=== PATIENT | male | born 1970 | race Caucasian/White ===

== ENCOUNTER 2017-07-28 17:09 | Inpatient (IN) | payer SELFPAY ==
[~2017-07-28] VITALS: Ht 177.8 cm; Wt 115.2 kg
[~2017-07-28 17:09] MED LIST: ACET325T16 PO; AMPI500C2 PO; GLYB5TAB3 PO; INSU100I17 SQ; INSU100I27 SQ; LISI-334 PO; METF10003 PO; METO25TA4 PO; Nicotine TD; OXYC-327 PO; PSYL1PAC7 PO
--- NOTE | 2017-07-28 17:38 | ED.ADGEN ---
Past History Past Medical History: Diabetes, Hypertension, Other Past Surgical History: No Surgical History, Angioplasty, Other Smoking: Cigarettes Alcohol Use: None Drug Use: None Adult General Chief Complaint Chief Complaint ".. I ve been noticing my finger tips .. particular in my Lt hand are turning blue.. and some times they hurt..." HPI HPI Patient is a 46 year old male who presents with above hx and complaints of PVDz. Pt. has capillary refill in excess of 3 seconds in both hands, > more delay in Lt.. Pt. has loss of hair over lower 1/2 of low legs and also capillary refill in excess of 3 seconds. Pt. has had previous cardiac stents, Rt. femoral stent, HTN and is diabetic. Pt. still smokes in excess of 1 pack cigarettes a day. Pt. advised he has been instructed many times to quit smoking, but states he can not do that. Pt. follows with Review of Systems Review of Systems Constitutional: Denies fever or chills [] Eyes: Denies change in visual acuity, redness, or eye pain [] HENT: Denies nasal congestion or sore throat [] Respiratory: Denies cough or shortness of breath [] Cardiovascular: No additional information not addressed in HPI [] GI: Denies abdominal pain, nausea, vomiting, bloody stools or diarrhea [] : Denies dysuria or hematuria [] Musculoskeletal: Denies back pain or joint pain []left leg pain when he walks for a 4 Integument: Denies rash or skin lesions []complains of intermittent cyanosis and pain in left hand Neurologic: Denies headache, focal weakness or sensory changes [] Endocrine: Denies polyuria or polydipsia [] All other systems were reviewed and found to be within normal limits, except as documented in this note. Family History Family History Noncontributory Current Medications Current Medications Current Medications Medications (Trade) Dose Ordered Sig/Preet Start Time Stop Time Status Last Admin Dose Admin Dabigatran (Pradaxa) 150 mg 1X ONCE 07/28/17 18:00 07/28/17 18:01 DC 07/28/17 18:14 150 MG Ondansetron HCl (Zofran) 4 mg PRN Q4HRS PRN 07/28/17 18:30 07/29/17 18:29 Allergies Allergies Allergies Coded Allergies Type Severity Reaction Last Updated Verified No Known Drug Allergies 11/16/16 No Physical Exam Physical Exam Constitutional: Moderately acute distress, non-toxic appearance. [] HENT: Normocephalic, atraumatic, bilateral external ears normal, oropharynx moist, no oral exudates, nose normal. [] Eyes: PERRLA, EOMI, conjunctiva normal, no discharge. [] Neck: Normal range of motion, no tenderness, supple, no stridor. [] Cardiovascular:Heart rate regular rhythm, no murmur [] Lungs & Thorax: Bilateral breath sounds equal apex scattered wheezes auscultation [] Abdomen: Bowel sounds normal, soft, no tenderness, no masses, no pulsatile masses. [] Skin: Warm, dry, no erythema, no rash. [] Back: No tenderness, no CVA tenderness. [] Extremities: No tenderness, no cyanosis, no clubbing, ROM intact, no edema. [] Capillary refill more than 3 seconds and fingers and toes. Has lost hair on bilateral lower shins. Having interment cyanosis of fingers on Lt. hand. Neurologic: Alert and oriented X 3, normal motor function, normal sensory function, no focal deficits noted. [] Psychologic: Affect anxious, judgement normal, mood normal. [] Current Patient Data Vital Signs Vital Signs Date Time Temp Pulse Resp B/P (MAP) Pulse Ox O2 Delivery O2 Flow Rate FiO2 07/28/17 18:15 99 20 132/67 (88) 95 Room Air 07/28/17 17:09 98.0 Lab Results Laboratory Tests Test 07/28/17 18:04 White Blood Count 12.9 x10^3/uL (4.0-11.0) H Red Blood Count 4.96 x10^6/uL (4.30-5.70) Hemoglobin 15.8 g/dL (13.0-17.5) Hematocrit 45.4 % (39.0-53.0) Mean Corpuscular Volume 92 fL (79-100) Mean Corpuscular Hemoglobin 32 pg (25-35) Mean Corpuscular Hemoglobin Concent 35 g/dL (31-37) Red Cell Distribution Width 14.1 % (11.5-14.5) Platelet Count 353 x10^3/uL (140-400) Neutrophils (%) (Auto) 65 % (31-73) Lymphocytes (%) (Auto) 20 % (24-48) L Monocytes (%) (Auto) 8 % (0-9) Eosinophils (%) (Auto) 6 % (0-3) H Basophils (%) (Auto) 1 % (0-3) Neutrophils # (Auto) 8.4 x10^3uL (1.8-7.7) H Lymphocytes # (Auto) 2.6 x10^3/uL (1.0-4.8) Monocytes # (Auto) 1.0 x10^3/uL (0.0-1.1) Eosinophils # (Auto) 0.7 x10^3/uL (0.0-0.7) Basophils # (Auto) 0.1 x10^3/uL (0.0-0.2) Prothrombin Time 9.8 SEC (9.4-11.4) Prothrombin Time INR 1.0 (0.9-1.1) PTT 35 SEC (23-33) H Sodium Level 140 mmol/L (136-145) Potassium Level 4.0 mmol/L (3.5-5.1) Chloride Level 101 mmol/L (98-107) Carbon Dioxide Level 26 mmol/L (21-32) Anion Gap 13 (6-14) Blood Urea Nitrogen 16 mg/dL (8-26) Creatinine 1.1 mg/dL (0.7-1.3) Estimated GFR (Cockcroft-Gault) 71.4 Glucose Level 138 mg/dL (70-99) H Calcium Level 9.6 mg/dL (8.5-10.1) Magnesium Level 2.4 mg/dL (1.8-2.4) Total Bilirubin 0.5 mg/dL (0.2-1.0) Direct Bilirubin 0.0 mg/dL (0.0-0.2) Aspartate Amino Transferase (AST) 27 U/L (15-37) Alanine Aminotransferase (ALT) 28 U/L (16-63) Alkaline Phosphatase 121 U/L (46-116) H [id number]-Type Natriuretic Peptide 68 pg/mL (0-124) Total Protein 8.2 g/dL (6.4-8.2) Albumin 4.2 g/dL (3.4-5.0) EKG EKG My interpretation EKG shows a sinus rhythm at 83 bpm. No finding to acute changes Radiology/Procedures Radiology/Procedures My interpretation of chest x-ray shows borderline cardiomegaly. Some findings of COPD. No large infiltrate.[] Ultrasound of lower limb shows segmental a proximal mid left superficial femoral artery. See Formal reports when available Course & Med Decision Making Course & Med Decision Making Pertinent Labs and Imaging studies reviewed. (See chart for details) Must stop smoking. Pt. to be admitted to Dr. Dodd. Continue daily ASA 81 mg and start Pradaxa 150 twice a day. Will complete US workup PVDz. US of Lt. arm shows no obvious obstruction veinous or arterial. Still awaiting electrolytes at 2100 hrs. Electrolytes still pending at time of admission [] Final Impression Final Impression 1. PVDz 2. HTN 3. Hx. HTN 4. Hx. CADz with Stent 5. Continue Tobacco Use[] 6. Leukocytosis Problems: Dragon Disclaimer Dragon Disclaimer This electronic medical record was generated, in whole or in part, using a voice recognition dictation system. JIMMIE HEAD MD July 28, 2017 17:38
[2017-07-28] MEDS ORDERED: DABI150C PO (17:58)
[2017-07-28] MEDS ORDERED: DABIGATRAN ETEXILATE 150 MG CAPSULE. PO ONE (18:00)
[2017-07-28] MEDS ORDERED: ONDANSETRON PF 4 MG/2 ML VIAL. IV PRN (18:30)
--- NOTE | 2017-07-28 18:35 | EKG ---
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
[2017-07-28 18:59] LABS: BASO # 0.1 x10^3/uL (0.0-0.2); BASO % 1 % (0-3); EOS # 0.7 x10^3/uL (0.0-0.7); EOS % 6 % (0-3); HEMATOCRIT 45.4 % (39.0-53.0); HEMOGLOBIN 15.8 g/dL (13.0-17.5); LYMPH # 2.6 x10^3/uL (1.0-4.8); LYMPH % 20 % (24-48); MEAN CORPUSCULAR HEMOGLOBIN 32 pg (25-35); MEAN CORPUSCULAR HGB CONC 35 g/dL (31-37); MEAN CORPUSCULAR VOLUME 92 fL (79-100); MONO % 8 % (0-9); NEUT # 8.4 x10^3uL (1.8-7.7); NEUT % 65 % (31-73); PLATELET COUNT 353 x10^3/uL (140-400); RED BLOOD COUNT 4.96 x10^6/uL (4.30-5.70); RED CELL DISTRIBUTION WIDTH 14.1 % (11.5-14.5); WHITE BLOOD COUNT 12.9 x10^3/uL (4.0-11.0)
[2017-07-28] MEDS ORDERED: KETOROLAC 30 MG/ML VIAL. IV ONE (20:00)
[2017-07-28] MEDS ORDERED: MORPHINE SULFATE 4 MG/ML DISP.SYRIN. IV ONE (20:30)
[2017-07-28] MEDS ORDERED: MORPHINE SULFATE 10 MG/ML SYRINGE. SQ ONE (20:30)
[2017-07-28] MEDS ORDERED: NITROGLYCERIN OINT 1 GM PACKET. TP ONE (21:00)
[2017-07-28 21:01] LABS: ALBUMIN 4.2 g/dL (3.4-5.0); TOTAL PROTEIN 8.2 g/dL (6.4-8.2)
[2017-07-28 21:03] LABS: MAGNESIUM 2.4 mg/dL (1.8-2.4); TOTAL BILIRUBIN 0.5 mg/dL (0.2-1.0)
--- NOTE | 2017-07-28 21:08 | RAD ---
Left lower extremity arterial doppler ultrasound History: Left toe cyanosis Comparison: None Findings: Multiple grayscale, color, and duplex spectral analysis sonographic images were acquired of the left lower extremity arteries. There is segmental occlusion of the proximal through the mid left superficial femoral artery, reconstitution of the distal left superficial femoral artery. There are monophasic waveforms beyond the segment of occlusion, triphasic waveforms of the left common femoral artery and profunda femoris artery. Velocities in centimeters per second are as follows: Common femoral artery 84 Profunda femoris 158 Distal superficial femoral artery 20 Popliteal 18 Proximal posterior tibial artery 30 Distal posterior tibial 38 Peroneal 34 Anterior tibial 28 Dorsalis pedis 21 Impression: 1. There is segmental occlusion of the proximal through mid left superficial femoral artery, reconstitution at the level of the distal superficial femoral artery. There are abnormal monophasic waveforms beyond the segment of occlusion. Electronically signed by: Booker Lorenzo MD (07/28/2017 9:05 PM) [facility]
--- NOTE | 2017-07-28 21:11 | RAD ---
Left upper extremity arterial ultrasound HISTORY: Painful cyanosis of the left first through third digits, finger sinuses COMPARISON: None FINDINGS: Multiple grayscale, color, duplex spectral analysis waveform images of the left upper extremity arteries are submitted. There is motion degradation. There are triphasic waveforms of the anterior left lower extremity arteries, no focal vessel occlusion or significant stenosis is demonstrated. Velocities in centimeters per second are as follows: Proximal subclavian 102 Distal subclavian 86 Axillary 66 Proximal brachial 87 Distal brachial 74 Proximal radial 65 Distal radial 75 Proximal ulnar 37 Distal ulnar 45 IMPRESSION: 1. No focal vessel occlusion or significant stenosis is demonstrated of the left upper extremity arteries. Electronically signed by: Booker Lorenzo MD (07/28/2017 9:07 PM) [facility]
--- NOTE | 2017-07-28 21:14 | RAD ---
Carotid doppler ultrasound History: LT FINGER TOE CYANOSIS, PAIN, peripheral vascular disease Multiple grayscale, color, and duplex spectral analysis waveform sonographic images were acquired of the carotid, subclavian, and vertebral arteries. Comparison: None Findings: RIGHT: PSV cm/sec EDV cm/sec Common carotid artery 74 24 Maximal internal carotid artery 82 42 External carotid artery 75 Vertebral artery 50 ICA/CCA ratio 1.1 LEFT: PSV cm/sec EDV cm/sec Common carotid artery 78 17 Maximum internal carotid artery 68 25 External carotid artery 60 Vertebral artery 37 ICA/CCA ratio 0.87 Velocities used to determine stenosis are known to correlate with NASCET angiographic criteria. There is antegrade flow in the bilateral vertebral arteries. No significant stenosis is demonstrated on grayscale or color images. Impression: 1. There is no evidence of a hemodynamically significant stenosis. Electronically signed by: Booker Lorenzo MD (07/28/2017 9:11 PM) [facility]
[2017-07-28 21:50] VITALS: BP 124/81
[2017-07-28 22:36] LABS: CALCIUM 9.6 mg/dL (8.5-10.1); CREATININE 1.1 mg/dL (0.7-1.3); GFR 71.4
[2017-07-28] MEDS: MORPHINE SULFATE 10 MG/ML SYRINGE. SQ PRN (23:44)
[2017-07-29 06:00] VITALS: BP 134/73
[2017-07-29] MEDS: MORPHINE SULFATE 10 MG/ML SYRINGE. SQ PRN (06:25)
[2017-07-29 06:33] LABS: BASO # 0.1 x10^3/uL (0.0-0.2); BASO % 1 % (0-3); EOS # 0.7 x10^3/uL (0.0-0.7); EOS % 7 % (0-3); HEMATOCRIT 43.6 % (39.0-53.0); LYMPH # 2.5 x10^3/uL (1.0-4.8); LYMPH % 23 % (24-48); MEAN CORPUSCULAR HEMOGLOBIN 32 pg (25-35); MEAN CORPUSCULAR HGB CONC 34 g/dL (31-37); MEAN CORPUSCULAR VOLUME 92 fL (79-100); MONO # 1.1 x10^3/uL (0.0-1.1); MONO % 10 % (0-9); NEUT # 6.4 x10^3uL (1.8-7.7); NEUT % 59 % (31-73); PLATELET COUNT 326 x10^3/uL (140-400); RED BLOOD COUNT 4.74 x10^6/uL (4.30-5.70); RED CELL DISTRIBUTION WIDTH 13.7 % (11.5-14.5); WHITE BLOOD COUNT 10.9 x10^3/uL (4.0-11.0)
[2017-07-29] MEDS ORDERED: metFORMIN 500 MG TABLET PO SCH (08:00)
[2017-07-29] MEDS ORDERED: ASPIRIN 81 MG TAB.CHEW PO SCH (09:00)
[2017-07-29] MEDS ORDERED: LISINOPRIL 20 MG TABLET PO SCH (09:00)
[2017-07-29] MEDS ORDERED: DABIGATRAN ETEXILATE 150 MG CAPSULE. PO SCH ×2 (09:00)
[2017-07-29] MEDS ORDERED: METOPROLOL TART IMMED RELEASE 25 MG TABLET PO SCH (09:00)
[2017-07-29] MEDS ORDERED: glyBURIDE 5 MG TABLET PO SCH (09:00)
[2017-07-29 09:39] LABS: CALCIUM 9.2 mg/dL (8.5-10.1)
[2017-07-29 09:40] LABS: CREATININE 1.2 mg/dL (0.7-1.3); GFR 64.6
--- NOTE | 2017-07-29 11:34 | DS ---
DATE OF DISCHARGE: 07/29/2017 HOSPITAL COURSE: The patient admitted with vascular insufficiency and having problems with primarily his left leg. His hand he says is much better. We have encouraged him to stop smoking. He is doing better there. White count came down. The imaging shows segmental occlusion in the mid left superficial femoral artery and reconstituting later. Apparently he has had vascular problems in the past. We will try to get him in to a vascular surgeon as soon as possible and keep him on the Pradaxa for now and make further evaluation on him as indicated. His LDL is slightly elevated at 127, glucose 138. IMPRESSION: Vascular insufficiency occlusion of the left femoral artery, type 2 diabetes, obesity, hypercholesterolemia. The patient will follow up accordingly. See EMRAD, diabetic diet, decreased activity. Make further evaluation on him as indicated. PETER SÁNCHEZ MD DR: ISSAC/andrei JOB#: [id number] / [id number]
== END 2017-07-29 10:00 | disposition home or self-care (01) | DRG 301 ==
LOC: ER 17:09 → 1 SOUTH 18:30
PROVIDERS: ADMIT Family Medicine; ATTEND Family Medicine
DX: I70.202 Unspecified atherosclerosis of native arteries of extremities, left leg (principal); E11.51 Type 2 diabetes mellitus with diabetic peripheral angiopathy without gangrene; E66.9 Obesity, unspecified; E78.00 Pure hypercholesterolemia, unspecified; F17.210 Nicotine dependence, cigarettes, uncomplicated; I25.10 Atherosclerotic heart disease of native coronary artery without angina pectoris; I10 Essential (primary) hypertension; Z95.5 Presence of coronary angioplasty implant and graft; Z95.820 Peripheral vascular angioplasty status with implants and grafts; Z79.84 Long term (current) use of oral hypoglycemic drugs; Z79.899 Other long term (current) drug therapy
CPT/HCPCS: 36415; 80048; 80061; 80076; 83735; 83880; 85025; 85610; 85730; 93005; 93880; 93926; 93931; 96372; 96374; 96375; 99406; G0238; J1885; J2270; 99285-25

== ENCOUNTER 2017-08-18 10:49 | Emergency (ER) | payer SELFPAY ==
[~2017-08-18] VITALS: Ht 177.8 cm; Wt 115.0 kg
[~2017-08-18 10:49] MED LIST changes: +DABI150C PO
[2017-08-18] MEDS ORDERED: IV NORMAL SALINE 1,000ML 1,000 ML IV SCH (11:16)
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
[2017-08-18 11:34] LABS: BASO # 0.1 x10^3/uL (0.0-0.2); BASO % 1 % (0-3); EOS # 0.2 x10^3/uL (0.0-0.7); EOS % 1 % (0-3); LYMPH # 2.2 x10^3/uL (1.0-4.8); LYMPH % 14 % (24-48); MEAN CORPUSCULAR HEMOGLOBIN 31 pg (25-35); MEAN CORPUSCULAR HGB CONC 34 g/dL (31-37); MEAN CORPUSCULAR VOLUME 90 fL (79-100); MONO # 0.8 x10^3/uL (0.0-1.1); MONO % 5 % (0-9); NEUT # 12.2 x10^3uL (1.8-7.7); NEUT % 79 % (31-73); PLATELET COUNT 365 x10^3/uL (140-400); RED BLOOD COUNT 4.55 x10^6/uL (4.30-5.70); RED CELL DISTRIBUTION WIDTH 13.6 % (11.5-14.5); WHITE BLOOD COUNT 15.5 x10^3/uL (4.0-11.0)
[2017-08-18] MEDS: HYDROmorphone PF 1 MG/ML DISP.SYRIN IV/SQ PRN ×2 (11:37→12:27)
[2017-08-18 11:39] LABS: CALCIUM 8.5 mg/dL (8.5-10.1); GFR 79.8; POTASSIUM 3.8 mmol/L (3.5-5.1)
[2017-08-18] MEDS ORDERED: PROCHLORPERAZINE 10 MG/2 ML VIAL. IV ONE (11:45)
[2017-08-18] MEDS ORDERED: CONTRAST GIVEN MC PRN (11:45)
[2017-08-18] MEDS ORDERED: IOHEXOL 300 MG/ML 75 ML VIAL. IV ONE (11:45)
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
[2017-08-18 12:33] VITALS: BP 162/94
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
[2017-08-18 13:04] LABS: BARBITURATES NEG (NEG); BENZODIAZEPINES NEG (NEG); CANNABINOIDS POS (NEG); COCAINE NEG (NEG); METHADONE NEG (NEG); OPIATES POS (NEG); PHENCYCLIDINE NEG (NEG)
[2017-08-18 13:05] LABS: AMPHETAMINE/METHAMPHETAMINE NEG (NEG)
[2017-08-18 13:07] LABS: BILIRUBIN,URINE NEG (NEG); CLARITY,URINE CLEAR; COLOR,URINE AMBER; GLUCOSE,URINE NEG (NEG); NITRITE,URINE NEG (NEG); UROBILINOGEN,URINE 2 mg/dL (0.2 mg/dL)
[2017-08-18 13:08] LABS: BACTERIA,URINE 0 /HPF (0-FEW); HYALINE CASTS, URINE OCC /HPF; SQUAMOUS EPITHELIAL CELL,UR FEW /LPF; WBC,URINE OCC /HPF (0-4)
[2017-08-18 14:08] LABS: % BANDS 3 % (0-9); % BASOS 1 % (0-3); % LYMPHS 13 % (24-48); % MONOS 2 % (0-10); % SEGS 79 % (35-66); PLATELET CLUMP PRESENT; PLT ESTIMATE INCREASED (ADEQUATE)
== END 2017-08-18 13:40 | disposition home or self-care (01) ==
LOC: ER 10:49
DX: M79.644 Pain in right finger(s) (principal); R10.84 Generalized abdominal pain; R07.89 Other chest pain; E11.9 Type 2 diabetes mellitus without complications; I10 Essential (primary) hypertension; F17.210 Nicotine dependence, cigarettes, uncomplicated; F12.10 Cannabis abuse, uncomplicated; Z79.02 Long term (current) use of antithrombotics/antiplatelets; Z79.82 Long term (current) use of aspirin; V43.52XA Car driver injured in collision with other type car in traffic accident, initial encounter; Y93.89 Activity, other specified; Y99.8 Other external cause status; Y92.89 Other specified places as the place of occurrence of the external cause
CPT/HCPCS: 36415; 70450; 71260; 72125; 74177; 80048; 80307; 81001; 83605; 85007; 85025; 85610; 85730; 86850; 86900; 86901; 96374; 96375; 96376; 99285; G0480; J0780; J1170; Q9967; G0479; J7030

== ENCOUNTER 2017-08-23 08:46 | Inpatient (IN) | payer SELFPAY ==
[~2017-08-23] VITALS: Ht 177.8 cm; Wt 112.5 kg
[2017-08-23 08:19] VITALS: BP 203/105
[2017-08-23] MEDS ORDERED: LORazepam 0.5 MG TABLET PO ONE (09:30)
[2017-08-23] MEDS ORDERED: HYDROmorphone PF 2 MG/ML VIAL IM ONE (09:30)
[2017-08-23] MEDS: IV NORMAL SALINE 1,000ML 1,000 ML IV SCH ×2 (10:36→19:52)
[2017-08-23] MEDS: PENTOXIFYLLINE ER 400 MG TABLET.ER. PO SCH ×2 (10:36→16:27)
[2017-08-23] MEDS: CLOPIDOGREL BISULFATE 75 MG TABLET PO SCH (10:36)
[2017-08-23] MEDS: metFORMIN 500 MG TABLET PO SCH ×2 (10:36→16:27)
[2017-08-23] MEDS: METOPROLOL TART IMMED RELEASE 25 MG TABLET PO SCH ×2 (10:37→20:13)
[2017-08-23] MEDS: glyBURIDE 5 MG TABLET PO SCH (10:37)
[2017-08-23] MEDS: LISINOPRIL 20 MG TABLET PO SCH (10:37)
[2017-08-23] MEDS: DABIGATRAN ETEXILATE 150 MG CAPSULE. PO SCH ×2 (10:38→20:13)
[2017-08-23 10:58] LABS: ALBUMIN 3.1 g/dL (3.4-5.0); ALBUMIN/GLOBULIN RATIO 0.7 (1.0-1.7); CALCIUM 8.8 mg/dL (8.5-10.1); GFR 79.8; POTASSIUM 4.1 mmol/L (3.5-5.1); TOTAL BILIRUBIN 0.3 mg/dL (0.2-1.0); TOTAL PROTEIN 7.6 g/dL (6.4-8.2)
[2017-08-23] MEDS: HYDROmorphone PF 2 MG/ML VIAL IV PRN ×6 (11:24→23:29)
[2017-08-23 11:39] VITALS: BP 180/120
[2017-08-23] MEDS ORDERED: VANCOMYCIN 2 GM in IV NORMAL SALINE 500ML 500 ML IV ONE (12:00)
[2017-08-23] MEDS: VANCOMYCIN PER PHARMACY MC PRN (13:38)
[2017-08-23 16:23] VITALS: BP 159/105
[2017-08-23 18:40] VITALS: BP 195/106
[2017-08-23] MEDS: DOCUSATE SODIUM 100 MG CAPSULE PO SCH (20:12)
[2017-08-23] MEDS: LACTOBACILLUS RHAMNOSUS GG 1 CAPSULE. PO SCH (20:13)
[2017-08-23] MEDS: LORazepam 0.5 MG TABLET PO PRN (20:13)
[2017-08-23] MEDS: VANCOMYCIN 1.5 GM in IV NORMAL SALINE 500ML 500 ML IV SCH (21:21)
[2017-08-23] MEDS: IPRATRPIUM/ALBUTEROL 0.5/2.5MG 3 ML NEBU. NEB SCH (21:31)
[2017-08-23 23:21] VITALS: BP 202/94
[2017-08-24] MEDS: HYDROcodone/APAP 10/325 1 TAB TABLET PO PRN ×2 (01:28→06:14)
[2017-08-24] MEDS: LIDOCAINE 5% TOPICAL OINTMENT 35GM TUBE. TP PRN (02:05)
[2017-08-24] MEDS: LORazepam 0.5 MG TABLET PO PRN ×3 (02:05→20:00)
[2017-08-24] MEDS: HYDROmorphone PF 2 MG/ML VIAL IV PRN ×4 (03:03→20:01)
[2017-08-24] MEDS: IV NORMAL SALINE 1,000ML 1,000 ML IV SCH ×2 (03:03→17:52)
[2017-08-24] MEDS: VANCOMYCIN 1.5 GM in IV NORMAL SALINE 500ML 500 ML IV SCH ×2 (04:29→17:51)
[2017-08-24] MEDS: IPRATRPIUM/ALBUTEROL 0.5/2.5MG 3 ML NEBU. NEB SCH ×4 (05:22→20:30)
[2017-08-24 07:00] VITALS: BP 158/96
[2017-08-24] MEDS: metFORMIN 500 MG TABLET PO SCH ×2 (08:48→17:51)
[2017-08-24] MEDS: PENTOXIFYLLINE ER 400 MG TABLET.ER. PO SCH ×2 (08:49→17:51)
[2017-08-24] MEDS: LACTOBACILLUS RHAMNOSUS GG 1 CAPSULE. PO SCH ×2 (08:49→20:15)
[2017-08-24] MEDS: glyBURIDE 5 MG TABLET PO SCH (08:49)
[2017-08-24] MEDS: METOPROLOL TART IMMED RELEASE 25 MG TABLET PO SCH ×2 (08:49→20:01)
[2017-08-24] MEDS: CLOPIDOGREL BISULFATE 75 MG TABLET PO SCH (08:49)
[2017-08-24] MEDS: LISINOPRIL 20 MG TABLET PO SCH (08:49)
[2017-08-24] MEDS: DABIGATRAN ETEXILATE 150 MG CAPSULE. PO SCH ×2 (08:50→20:00)
[2017-08-24] MEDS: DOCUSATE SODIUM 100 MG CAPSULE PO SCH ×2 (08:50→20:00)
[2017-08-24 11:00] VITALS: BP 155/91
[2017-08-24 11:48] LABS: VANC TR 20.3 mcg/mL (10.0-20.0)
[2017-08-24] MEDS: VANCOMYCIN PER PHARMACY MC PRN (12:39)
[2017-08-24 15:00] VITALS: BP 161/108
[2017-08-24 19:34] VITALS: BP 140/88
[2017-08-25] MEDS: LIDOCAINE 5% TOPICAL OINTMENT 35GM TUBE. TP PRN (00:09)
[2017-08-25 01:17] VITALS: BP 161/98
[2017-08-25] MEDS: HYDROmorphone PF 2 MG/ML VIAL IV PRN (01:26)
[2017-08-25] MEDS: IV NORMAL SALINE 1,000ML 1,000 ML IV SCH (01:45)
[2017-08-25] MEDS: VANCOMYCIN 1.5 GM in IV NORMAL SALINE 500ML 500 ML IV SCH (04:21)
[2017-08-25] MEDS: HYDROcodone/APAP 10/325 1 TAB TABLET PO PRN (04:41)
--- NOTE | 2017-08-25 04:49 | PN ---
DATE: 08/24/2017 SUBJECTIVE: A 46-year-old male admitted with multiple medical problems including sepsis as well as elevated white count and sed rate of 109, those were done as an outpatient. The patient; otherwise, seems to be doing a little better today. His hands are still markedly swollen and discolored. The patient has significant peripheral vascular disease, has a markedly elevated D-dimer. He is being evaluated by Vascular Surgery. His vancomycin levels are being evaluated for the cellulitis. The patient also was having trouble breathing. CT scan as an outpatient just recently showed 5 mm nodule in the right lower lobe as well as colitis and also will apparently probably need a colonoscopy as an outpatient. IMPRESSION: Sepsis, hypertensive urgency (NC), acute asthma, peripheral vascular disease, cellulitis to the fingers, obesity. PLAN: Continue with IV antibiotic therapy, aggressive pulmonary toilet, type 2 diabetes. PETER SÁNCHEZ MD DR: ISSAC/andrei JOB#: [id number] / [id number]
[2017-08-25 04:58] VITALS: BP 146/101
[2017-08-25] MEDS: IPRATRPIUM/ALBUTEROL 0.5/2.5MG 3 ML NEBU. NEB SCH (05:11)
== END 2017-08-25 06:50 | disposition home or self-care (01) | DRG 872 ==
LOC: 1 SOUTH 08:46
PROVIDERS: ADMIT Family Medicine; ATTEND Family Medicine
DX: A41.89 Other specified sepsis (principal); E11.51 Type 2 diabetes mellitus with diabetic peripheral angiopathy without gangrene; E78.00 Pure hypercholesterolemia, unspecified; F17.210 Nicotine dependence, cigarettes, uncomplicated; L03.019 Cellulitis of unspecified finger; I10 Essential (primary) hypertension; I25.10 Atherosclerotic heart disease of native coronary artery without angina pectoris; J45.909 Unspecified asthma, uncomplicated; E66.9 Obesity, unspecified; I16.0 Hypertensive urgency; R79.1 Abnormal coagulation profile; I25.2 Old myocardial infarction; Z82.49 Family history of ischemic heart disease and other diseases of the circulatory system; Z79.899 Other long term (current) drug therapy; Z83.3 Family history of diabetes mellitus; Z68.35 Body mass index [BMI] 35.0-35.9, adult
CPT/HCPCS: 36415; 80053; 80202; 94640; J1170; J1956; J3370; J7040; J7620; J7030

== ENCOUNTER 2020-06-13 10:21 | Emergency (ER) | payer SELFPAY ==
[~2020-06-13] VITALS: Ht 177.8 cm; Wt 121.1 kg
[~2020-06-13 10:21] MED LIST changes: +ACET-2066 PO; -ACET325T16 PO; -LISI-334 PO; +LISI20TA18 PO; -METF10003 PO; +METF10007 PO; -OXYC-327 PO; +OXYC1TAB19 PO
--- NOTE | 2020-06-13 10:37 | EKG ---
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
[2020-06-13] MEDS: NITROGLYCERIN SUBLINGUAL 0.4 MG BOTTLE OF 25. SL PRN ×4 (10:42→15:06)
[2020-06-13 10:51] LABS: BASO # 0.1 x10^3/uL (0.0-0.2); BASO % 1 % (0-3); EOS # 0.3 x10^3/uL (0.0-0.7); EOS % 3 % (0-3); HEMATOCRIT 46.4 % (39.0-53.0); HEMOGLOBIN 15.6 g/dL (13.0-17.5); LYMPH # 2.7 x10^3/uL (1.0-4.8); LYMPH % 22 % (24-48); MEAN CORPUSCULAR HEMOGLOBIN 31 pg (25-35); MEAN CORPUSCULAR HGB CONC 34 g/dL (31-37); MEAN CORPUSCULAR VOLUME 94 fL (79-100); MONO # 0.9 x10^3/uL (0.0-1.1); MONO % 7 % (0-9); NEUT # 8.4 x10^3uL (1.8-7.7); NEUT % 68 % (31-73); PLATELET COUNT 245 x10^3/uL (140-400); RED BLOOD COUNT 4.96 x10^6/uL (4.30-5.70); RED CELL DISTRIBUTION WIDTH 14.2 % (11.5-14.5); WHITE BLOOD COUNT 12.3 x10^3/uL (4.0-11.0)
--- NOTE | 2020-06-13 10:57 | RAD ---
XR CHEST 1V History: Chest pain Comparison: Chest x-ray 02/06/2016. CT chest 08/18/2017 Technique: AP radiograph of the chest. Findings: The lungs are adequately inflated. No airspace consolidation, pleural effusion or pneumothorax. Cardi ac silhouette is normal. Pulmonary vasculature is indistinct. Osseous structures and soft tissues are unremarkable. Impression: 1. Indistinct pulmonary vasculature may represent pulmonary vascular congestion. No focal airspace d isease. Electronically signed by: Rigo Kevin MD (06/13/2020 10:55 AM) [facility]
[2020-06-13 11:00] LABS: CALCIUM 9.5 mg/dL (8.5-10.1); CREATININE 1.4 mg/dL (0.7-1.3); GFR 53.4; POTASSIUM 3.9 mmol/L (3.5-5.1)
[2020-06-13 11:15] LABS: ALBUMIN 3.5 g/dL (3.4-5.0); ALBUMIN/GLOBULIN RATIO 0.9 (1.0-1.7); MAGNESIUM 2.3 mg/dL (1.8-2.4); TOTAL BILIRUBIN 0.3 mg/dL (0.2-1.0); TOTAL PROTEIN 7.3 g/dL (6.4-8.2)
--- NOTE | 2020-06-13 11:19 | PHYS DOC ---
Past History Past Medical History: Diabetes, High Cholesterol, Hypertension, Other Past Surgical History: Angioplasty, Other Additional Past Surgical Histo: Cardica and leg stents. Smoking: Cigarettes Alcohol Use: None Drug Use: Marijuana Adult General Chief Complaint Chief Complaint: CHEST PAIN HPI HPI Patient is a 49-year-old male with a past medical history including hypertension, hyperlipidemia, diabetes, status post STEMI status post stents placed in the past and presented emergency department complaining of chest pain. Patient states that chest pain initially started approximate 3 days ago was not intermittent left anterior chest pain that was worsened with exertion. Patient states he been taking aspirin for this which has been steadily improving. However this morning states that he woke up and had a severe onset of left anterior chest pain with radiation into the left arm and now states that his left arm is numb and heavy. Patient states that this does feel like previous episodes of myocardial infarction. Denies any recent fever, chills, nausea, dizziness, lightheadedness, cough, congestion or recent sick contacts Review of Systems Review of Systems Constitutional: Denies fever or chills [] Eyes: Denies change in visual acuity, redness, or eye pain [] HENT: Denies nasal congestion or sore throat [] Respiratory: Denies cough or shortness of breath [] Cardiovascular: No additional information not addressed in HPI [] GI: Denies abdominal pain, nausea, vomiting, bloody stools or diarrhea [] : Denies dysuria or hematuria [] Musculoskeletal: Denies back pain or joint pain [] Integument: Denies rash or skin lesions [] Neurologic: Denies headache, focal weakness or sensory changes [] Endocrine: Denies polyuria or polydipsia [] All other systems were reviewed and found to be within normal limits, except as documented in this note. Current Medications Current Medications Current Medications Medications (Trade) Dose Ordered Sig/Preet Start Time Stop Time Status Last Admin Dose Admin Nitroglycerin (Nitrostat) 0.4 mg PRN Q5MIN PRN 06/13/20 10:30 06/14/20 10:29 06/13/20 11:07 0.4 MG Allergies Allergies Allergies Coded Allergies Type Severity Reaction Last Updated Verified amoxicillin Allergy Intermediate 08/24/17 Yes clavulanic acid Allergy Intermediate 08/24/17 Yes Physical Exam Physical Exam Constitutional: Clearly uncomfortable. Well developed, well nourished, no acute distress, non-toxic appearance. [] HENT: Normocephalic, atraumatic, bilateral external ears normal, oropharynx moist, no oral exudates, nose normal. [] Eyes: PERRLA, EOMI, conjunctiva normal, no discharge. [] Neck: Normal range of motion, no tenderness, supple, no stridor. [] Cardiovascular:Heart rate regular rhythm, no murmur [] Lungs & Thorax: Bilateral breath sounds clear to auscultation [] Abdomen: Bowel sounds normal, soft, no tenderness, no masses, no pulsatile masses. [] Skin: Warm, dry, no erythema, no rash. [] Back: No tenderness, no CVA tenderness. [] Extremities: No tenderness, no cyanosis, no clubbing, ROM intact, no edema. [] Neurologic: Alert and oriented X 3, normal motor function, normal sensory function, no focal deficits noted. [] Psychologic: Affect normal, judgement normal, mood normal. [] Current Patient Data Vital Signs Vital Signs Date Time Temp Pulse Resp B/P (MAP) Pulse Ox O2 Delivery O2 Flow Rate FiO2 06/13/20 11:07 93 168/134 06/13/20 10:59 18 98 Room Air 06/13/20 10:27 98.0 Lab Results Laboratory Tests Test 06/13/20 10:28 White Blood Count 12.3 x10^3/uL (4.0-11.0) H Red Blood Count 4.96 x10^6/uL (4.30-5.70) Hemoglobin 15.6 g/dL (13.0-17.5) Hematocrit 46.4 % (39.0-53.0) Mean Corpuscular Volume 94 fL (79-100) Mean Corpuscular Hemoglobin 31 pg (25-35) Mean Corpuscular Hemoglobin Concent 34 g/dL (31-37) Red Cell Distribution Width 14.2 % (11.5-14.5) Platelet Count 245 x10^3/uL (140-400) Neutrophils (%) (Auto) 68 % (31-73) Lymphocytes (%) (Auto) 22 % (24-48) L Monocytes (%) (Auto) 7 % (0-9) Eosinophils (%) (Auto) 3 % (0-3) Basophils (%) (Auto) 1 % (0-3) Neutrophils # (Auto) 8.4 x10^3uL (1.8-7.7) H Lymphocytes # (Auto) 2.7 x10^3/uL (1.0-4.8) Monocytes # (Auto) 0.9 x10^3/uL (0.0-1.1) Eosinophils # (Auto) 0.3 x10^3/uL (0.0-0.7) Basophils # (Auto) 0.1 x10^3/uL (0.0-0.2) Sodium Level 138 mmol/L (136-145) Potassium Level 3.9 mmol/L (3.5-5.1) Chloride Level 101 mmol/L (98-107) Carbon Dioxide Level 28 mmol/L (21-32) Anion Gap 9 (6-14) Blood Urea Nitrogen 14 mg/dL (8-26) Creatinine 1.4 mg/dL (0.7-1.3) H Estimated GFR (Cockcroft-Gault) 53.4 BUN/Creatinine Ratio 10 (6-20) Glucose Level 278 mg/dL (70-99) H Calcium Level 9.5 mg/dL (8.5-10.1) Magnesium Level Pending Total Bilirubin Pending Aspartate Amino Transferase (AST) Pending Alanine Aminotransferase (ALT) Pending Alkaline Phosphatase Pending Creatine Kinase Pending Creatine Kinase MB (Mass) Pending Creatine Kinase MB Relative Index Pending Troponin I Quantitative 0.048 ng/mL (0-0.055) QG-Jxe-Q-Type Natriuretic Peptide Pending Total Protein Pending Albumin Pending Albumin/Globulin Ratio Pending Lipase Pending EKG EKG [] Radiology/Procedures Radiology/Procedures [] Heart Score C/O Chest Pain: Yes HEART Score for Chest Pain: HEART Score for Chest Pain Response (Comments) Value History Highly Suspicious 2 ECG Nonspecific Repolarizatio 1 Age >45 - < 65 1 Risk Factors >3 Risk Factors or Hx CAD 2 Troponin < Normal Limit 0 Total 6 Risk Factors: Risk Factors: DM, Current or recent (<one month) smoker, HTN, HLP, family history of CAD, obesity. Risk Scores: Risk Factors: DM, Current or recent (<one month) smoker, HTN, HLP, family history of CAD, obesity. Course & Med Decision Making Course & Med Decision Making Pertinent Labs and Imaging studies reviewed. (See chart for details) 49-year-old male with a significant cardiac history now presenting with new onset of chest pain that is concerning for acute AR. EKG on arrival does demonstrate what appears to be some ST depressions in the lateral leads but at this time does not meet STEMI criteria. There is significant concern for non- STEMI. Patient taken aspirin at home and given nitroglycerin here with improvement of his symptoms. Will obtain full ACS work-up and closely monitor for changes. 11:25 -patient labs returned and she is noted to have an elevated white count wi th troponin is negative. Patient is pain is still improved at 7 out of 10. Repeat EKG without any significant changes. At this time patient is requesting transfer for admission for chest pain work-up. 17:33 -after initial presentation initial troponin repeat troponin did demonstrate an elevation to 0.4. Repeat EKG was performed and there were no significant changes or is concern for ST elevation AR and at this time there is no indication for acute catheterization. Patient care has been taken at [facility] by Dr. Ngo. Upon notification of elevated troponin the patient was started on nitroglycerin and heparin drip. At this time the patient appears symptoms are improved and is hemodynamically stable. Dragon Disclaimer Dragon Disclaimer This electronic medical record was generated, in whole or in part, using a voice recognition dictation system. Departure Departure: Impression: Primary Impression: NSTEMI (non-ST elevated myocardial infarction) Disposition: 02 DC/TRF OTHER SHORT TERM HOS Condition: GUARDED Referrals: PETER SÁNCHEZ MD (PCP) JAS PINEDO MD Jun 13, 2020 11:19
[2020-06-13 11:42] LABS: BARBITURATES NEG (NEG); BENZODIAZEPINES NEG (NEG); CANNABINOIDS POS (NEG); COCAINE NEG (NEG); METHADONE NEG (NEG); OPIATES NEG (NEG); PHENCYCLIDINE NEG (NEG)
[2020-06-13 11:46] LABS: AMPHETAMINE/METHAMPHETAMINE NEG (NEG)
[2020-06-13 12:01] LABS: BACTERIA,URINE 0 /HPF (0-FEW); BILIRUBIN,URINE NEG (NEG); CLARITY,URINE CLEAR; COLOR,URINE YELLOW; GLUCOSE,URINE >=1000 mg/dL (NEG); NITRITE,URINE NEG (NEG); SQUAMOUS EPITHELIAL CELL,UR FEW /LPF; UROBILINOGEN,URINE 0.2 mg/dL (0.2 mg/dL); WBC,URINE OCC /HPF (0-4)
--- NOTE | 2020-06-13 13:52 | EKG ---
[address] [address] Test Date: 2020-06-13 Test Time: 11:01:50 Pat Name: JAE DRAKE Department: Room: Gender: M Icu Rn: BEULAH : 1970 Requested By: JAS PINEDO Order Number: [id number] Reading MD: Measurements Intervals [employer] Rate: 92 P: 40 GA: 164 QRS: 7 QRSD: 134 T: 7 QT: 390 QTc: 488 Interpretive Statements SINUS RHYTHM RIGHT BUNDLE BRANCH BLOCK ABNORMAL ECG RI6.02 No previous ECG available for comparison
[2020-06-13] MEDS ORDERED: HEPARIN for IV BOLUS 10,000 UNIT/10 ML VIAL. IV PRN (14:45)
[2020-06-13] MEDS ORDERED: HEPARIN 25,000UTS/250ML PREMIX 250 ML IV PRN (14:45)
[2020-06-13] MEDS ORDERED: HEPARIN for IV BOLUS 10,000 UNIT/10 ML VIAL. IV ONE (14:45)
[2020-06-13] MEDS ORDERED: ACETAMINOPHEN 500 MG TABLET PO ONE (15:15)
--- NOTE | 2020-06-13 15:19 | EKG ---
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
[2020-06-13] MEDS ORDERED: NITROGLYCERIN PREMIX 250 ML IV ONE (15:45)
[2020-06-13 16:54] VITALS: BP 183/119
== END 2020-06-13 17:48 | disposition short-term general hospital (02) ==
LOC: ER 10:21
DX: I21.4 Non-ST elevation (NSTEMI) myocardial infarction (principal); E11.9 Type 2 diabetes mellitus without complications; E78.00 Pure hypercholesterolemia, unspecified; I10 Essential (primary) hypertension; F17.210 Nicotine dependence, cigarettes, uncomplicated; E78.5 Hyperlipidemia, unspecified; Z98.61 Coronary angioplasty status; Z88.1 Allergy status to other antibiotic agents
CPT/HCPCS: 36415; 71045; 80053; 80307; 81001; 82553; 83690; 83735; 83880; 84484; 85025; 85610; 93005; 96365; 96366; 96368; 96376; 99285; J1644; J3490

== ENCOUNTER 2021-03-06 20:02 | Emergency (ER) | payer MEDICARE, OTHER ==
[~2021-03-06] VITALS: Ht 177.8 cm; Wt 104.5 kg
--- NOTE | 2021-03-06 20:10 | PHYS DOC ---
Past History Past Medical History: Diabetes, High Cholesterol, Hypertension, [place], Other Past Surgical History: Angioplasty, Coronary Bypass Surgery, Other Additional Past Surgical Histo: Cardica and leg stents. Smoking: Cigarettes Alcohol Use: None Drug Use: Marijuana General Adult HPI: HPI: ".. I ve had this chest discomfort the last couple hours... I thought I should come in and get it checked out... I am not sure it is cardiac or mechanical f rom the surgery... " Patient is a 50 year old ,male who presents with above hx and complaints of chest and Lt arm pain. Pt. has significant cardiac hx KS in Jan., with follow up Stents and by pass surgery at [facility]. Has had problem s with Sternal Incision site and repeat surgery and drain placed. Pt. denies any recent changes in meds. Pt. follows with Dr. Sánchez. P:t. Has past medical history of vascular insufficiency left femoral artery, Rt. femoral - revascular surgery, type 2 diabetes, obesity, hypercholesterol, tobacco use, coronary artery disease, hypertension, osteomyelitis, cellulitis, sepsis, vascular disease par ticularly in right leg.. Patient has been somewhat noncompliant with diabetic care. Pt. does still smoke. Review of Systems: Review of Systems: Constitutional: Denies fever or chills Eyes: Denies change in visual acuity HENT: Denies nasal congestion or sore throat Respiratory: Denies cough or shortness of breath Cardiovascular: Complains of chest wall discomfort GI: Denies abdominal pain, nausea, vomiting, bloody stools or diarrhea : Denies dysuria Musculoskeletal: Denies back pain or joint pain Integument: Denies rash Neurologic: Denies headache, focal weakness or sensory changes Endocrine: Denies polyuria or polydipsia Lymphatic: Denies swollen glands Psychiatric: Denies depression or anxiety Family History: Family History: Noncontributory to current presentation Current Medications: Current Meds: See nursing for home medications Allergies: Allergies: Allergies Coded Allergies Type Severity Reaction Last Updated Verified amoxicillin Allergy Intermediate 08/24/17 Yes clavulanic acid Allergy Intermediate 08/24/17 Yes Physical Exam: PE: Constitutional: , no acute distress, non-toxic appearance. [] HENT: Normocephalic, atraumatic, bilateral external ears normal, oropharynx moist, no oral exudates, nose normal. [] Eyes: PERRLA, EOMI, conjunctiva normal, no discharge. [] Neck: Normal range of motion, no tenderness, supple, no stridor. [] Cardiovascular:Heart rate regular rhythm, no murmur [] PMI slightly to the left Lungs & Thorax: Bilateral breath sounds equal at apexs biltateral on auscultation. Scattered wheezes. Drain is in place and draining. Abdomen: Bowel sounds normal, soft, no tenderness, no masses, no pulsatile masses. Obese. Skin: Warm, dry, no erythema, no rash. [] Back: No tenderness, no CVA tenderness. [] Extremities: No tenderness, no cyanosis, no clubbing, ROM intact, no edema. [] Rt.& Lt femoral scars. No cording in legs. Neurologic: Alert and oriented X 3, normal motor function, normal sensory function, no focal deficits noted. [] Psychologic: Affect normal, judgement normal, mood normal. [] EKG: EKG: My interpretation of EKG shows sinus rhythm at 85 bpm. Does have some mild changes of right bundle branch block. But no findings acute STEMI or contralateral changes. Time of this EKG is 2012 hrs. [] My interpretation of EKG #2 shows a sinus rhythm at 73 bpm. Right bundle branch block. No findings of acute STEMI of contralateral changes. Overall morphology is same as prior EKG time of this EKG is 2218 minutes. Radiology/Procedures: Radiology/Procedures: [place] [address] IMAGING REPORT Signed PATIENT: JAE DRAKE ACCOUNT: [id number] : 1970 LOCATION: ER AGE: 50 SEX: M EXAM STATUS: REG ER ORD. PHYSICIAN: JIMMIE HEAD MD REASON: hx. cp, elev. D dimer, dyspnea Omni 350 100cc PROCEDURE: CT ANGIOGRAPHY CHEST CTA CHEST INDICATION: hx. cp, elev. D dimer, dyspnea Comparison: Chest radiograph 03/06/2020. TECHNIQUE: Following the uneventful administration of intravenous contrast, 100 cc Omnipaque 350, axial CT sections were obtained through the lungs and upper abdomen. Multiplanar reconstructions and MIP images were obtained. PQRS compliance statement: One or more of the following individualized dose reduction techniques were utilized for this examination: 1. Automated exposure control 2. Adjustment of the mA and/or kV according to patient size 3. Use of iterative reconstruction technique FINDINGS: Pulmonary arteries: No evidence of pulmonary thromboembolic disease Lungs and Airways: No pulmonary mass or consolidation. No abnormality of the central airways. Pleura: The pleural spaces are normal. Heart and Mediastinum: The visualized thyroid is normal in size and attenuation. No axillary or supraclavicular lymphadenopathy. No mediastinal, hilar or retroc [place] lymphadenopathy. Normal cardiac size. Coronary artery atherosclerotic disease. Interval CABG. Normal caliber thoracic aorta. Abdomen: Limited images through the upper abdomen show no abnormality of the visualized organs. Bones and Soft Tissues: Postsurgical changes of recent median sternotomy with surgical drain in the presternal soft tissues. Presternal and retrosternal s tranding. No large hematoma or fluid collection. IMPRESSION: 1. No evidence of pulmonary thromboembolic disease. 2. Postsurgical changes of recent CABG, with expected presternal and retrosternal inflammatory changes and surgical drain in the presternal soft tissues. No mediastinal hematoma or fluid collection. 3. No consolidation. Electronically signed by: Amina Toribio MD (03/06/2021 11:35 PM) [facility] DICTATED AND SIGNED BY: AMINA TORIBIO MD DATE: 03/06/212329 CC: PETER SÁNCHEZ MD; JIMMIE HEAD MD ~MTH0 0 [][place] [address] IMAGING REPORT Signed PATIENT: JAE DRAKE ACCOUNT: [id number] : 1970 LOCATION: ER AGE: 50 SEX: M EXAM STATUS: REG ER ORD. PHYSICIAN: JIMMIE HEAD MD REASON: cp PROCEDURE: PORTABLE CHEST 1V XR CHEST 1V Clinical History: Reason: cp / Spl. Instructions: / History: Technique: AP view of the chest was obtained at 03/06/2021 8:14 PM. Comparison: June 13, 2000. Findings: The cardiomediastinal silhouette is normal. The pulmonary vasculature is normal. The lungs and pleural margins are clear. There has been interval median sternotomy. Impression: Status post median sternotomy. No acute findings. Electronically signed by: Susan Healy III, MD (03/06/2021 8:43 PM) [facility] DICTATED AND SIGNED BY: SUSAN HEALY III, MD DATE: 03/06/212041 CC: PETER SÁNCHEZ MD; JIMMIE HEAD MD ~MTH0 0 Heart Score: C/O Chest Pain: Yes HEART Score for Chest Pain: HEART Score for Chest Pain Response (Comments) Value History Slighlty/Non-Suspicious 0 ECG Nonspecific Repolarizatio 1 Age >45 - < 65 1 Risk Factors 1 or 2 Risk Factors 1 Troponin < Normal Limit 0 Total 3 Risk Factors: Risk Factors: DM, Current or recent (<one month) smoker, HTN, HLP, family history of CAD, obesity. Risk Scores: Score 0 - 3: 2.5% MACE over next 6 weeks - Discharge Home Score 4 - 6: 20.3% MACE over next 6 weeks - Admit for Clinical Observation Score 7 - 10: 72.7% MACE over next 6 weeks - Early Invasive Strategies Course & Med Decision Making: Course & Med Decision Making Pertinent Labs and Imaging studies reviewed. (See chart for details) Patient take meds. As directed. Patient follow-up with primary care. Patient to follow-up with cardiology. Patient keep follow-up today with cardiac rehab. Return if any concerns. \\ Impression: 1. Chest Pain- Chest Wall 2. Mild leukocytosis 13.1 3. Elevated D-dimer 2.14 4. History of recent sternotomy 5. History of coronary artery bypass [] Dragon Disclaimer: Dragon Disclaimer: This electronic medical record was generated, in whole or in part, using a voice recognition dictation system. Departure Departure: Referrals: PETER SÁNCHEZ MD (PCP) [employer] Disclaimer This chart was dictated in whole or in part using Voice Recognition software in a busy, high-work load, and often noisy Emergency Department environment. It may contain unintended and wholly unrecognized errors or omissions. Dragon Disclaimer This chart was dictated in whole or in part using Voice Recognition software in a busy, high-work load, and often noisy Emergency Department environment. It may contain unintended and wholly unrecognized errors or omissions. JIMMIE HEAD MD Mar 06, 2021 20:10
[2021-03-06] MEDS ORDERED: IV RINGERS SOLUTION,LACTATED 1,000 ML IV SCH (20:15)
[2021-03-06] MEDS ORDERED: ASPIRIN CHEWABLE 81 MG TABLET. PO ONE (20:15)
--- NOTE | 2021-03-06 20:23 | EKG ---
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
[2021-03-06 20:35] LABS: BASO # 0.2 x10^3/uL (0.0-0.2); BASO % 1 % (0-3); EOS # 0.3 x10^3/uL (0.0-0.7); EOS % 2 % (0-3); HEMATOCRIT 40.9 % (39.0-53.0); HEMOGLOBIN 13.4 g/dL (13.0-17.5); LYMPH # 2.4 x10^3/uL (1.0-4.8); LYMPH % 18 % (24-48); MEAN CORPUSCULAR HEMOGLOBIN 31 pg (25-35); MEAN CORPUSCULAR HGB CONC 33 g/dL (31-37); MEAN CORPUSCULAR VOLUME 94 fL (79-100); MONO % 8 % (0-9); NEUT # 9.2 x10^3uL (1.8-7.7); NEUT % 70 % (31-73); PLATELET COUNT 364 x10^3/uL (140-400); RED BLOOD COUNT 4.33 x10^6/uL (4.30-5.70); RED CELL DISTRIBUTION WIDTH 15.3 % (11.5-14.5); WHITE BLOOD COUNT 13.1 x10^3/uL (4.0-11.0)
[2021-03-06 20:44] LABS: CREATININE 1.3 mg/dL (0.7-1.3); POTASSIUM 4.4 mmol/L (3.5-5.1)
--- NOTE | 2021-03-06 20:45 | RAD ---
XR CHEST 1V Clinical History: Reason: cp / Spl. Instructions: / History: Technique: AP view of the chest was obtained at 03/06/2021 8:14 PM. Comparison: June 13, 2000. Findings: The cardiomediastinal silhouette is normal. The pulmonary vasculature is normal. The lungs and pleura l margins are clear. There has been interval median sternotomy. Impression: Status post median sternotomy. No acute findings. Electronically signed by: Miguelito Perez III, MD (03/06/2021 8:43 PM) [facility]
[2021-03-06 20:57] LABS: ALBUMIN 3.4 g/dL (3.4-5.0); DIRECT BILIRUBIN 0.1 mg/dL (0.0-0.2); MAGNESIUM 2.4 mg/dL (1.8-2.4); TOTAL BILIRUBIN 0.2 mg/dL (0.2-1.0); TOTAL PROTEIN 7.4 g/dL (6.4-8.2)
--- NOTE | 2021-03-06 22:25 | EKG ---
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
[2021-03-06] MEDS ORDERED: CONTRAST GIVEN. MC PRN (23:00)
[2021-03-06] MEDS ORDERED: IOHEXOL 350 MG/ML 100 ML VIAL. IV ONE (23:00)
--- NOTE | 2021-03-06 23:37 | RAD ---
CTA CHEST INDICATION: hx. cp, elev. D dimer, dyspnea Comparison: Chest radiograph 03/06/2020. TECHNIQUE: Following the uneventful administration of intravenous contrast, 100 cc Omnipaque 350, axi al CT sections were obtained through the lungs and upper abdomen. Multiplanar reconstructions and MIP images were obtained. RS compliance statement: One or more of the following individualized dose reduction techniques were utilized for this examinat ion: 1. Automated exposure control 2. Adjustment of the mA and/or kV according to patient size 3. Use of iterative reconstruction technique FINDINGS: Pulmonary arteries: No evidence of pulmonary thromboembolic disease Lungs and Airways: No pulmonary mass or consolidation. No abnormality of the central airways. Pleura: The pleural spaces are normal. Heart and Mediastinum: The visualized thyroid is normal in size and attenuation. No axillary or supra clavicular lymphadenopathy. No mediastinal, hilar or retrocrural lymphadenopathy. Normal cardiac size . Coronary artery atherosclerotic disease. Interval CABG. Normal caliber thoracic aorta. Abdomen: Limited images through the upper abdomen show no abnormality of the visualized organs. Bones and Soft Tissues: Postsurgical changes of recent median sternotomy with surgical drain in the p resternal soft tissues. Presternal and retrosternal stranding. No large hematoma or fluid collection. IMPRESSION: 1. No evidence of pulmonary thromboembolic disease. 2. Postsurgical changes of recent CABG, with expected presternal and retrosternal inflammatory change s and surgical drain in the presternal soft tissues. No mediastinal hematoma or fluid collection. 3. No consolidation. Electronically signed by: Booker Toribio MD (03/06/2021 11:35 PM) [facility]
[2021-03-07 00:07] VITALS: BP 146/89
== END 2021-03-07 00:07 | disposition home or self-care (01) ==
LOC: ER 20:02
DX: R07.89 Other chest pain (principal); D72.829 Elevated white blood cell count, unspecified; R79.1 Abnormal coagulation profile; M79.602 Pain in left arm; I25.810 Atherosclerosis of coronary artery bypass graft(s) without angina pectoris; E11.9 Type 2 diabetes mellitus without complications; E78.00 Pure hypercholesterolemia, unspecified; I10 Essential (primary) hypertension; F17.210 Nicotine dependence, cigarettes, uncomplicated; Z88.1 Allergy status to other antibiotic agents
CPT/HCPCS: 36415; 71045; 71275; 80048; 80076; 82550; 83690; 83735; 83880; 84443; 84484; 85025; 85379; 85610; 85730; 93005; 96360; 96361; 99285; J7120; Q9967

== ENCOUNTER 2021-03-09 22:17 | Emergency (ER) | payer MEDICARE, OTHER ==
[~2021-03-09] VITALS: Ht 177.8 cm; Wt 109.5 kg
--- NOTE | 2021-03-09 22:31 | PHYS DOC ---
Past History Past Medical History: Diabetes, High Cholesterol, Hypertension, ID, Other Past Surgical History: Angioplasty, Coronary Bypass Surgery, Other Additional Past Surgical Histo: Cardica and leg stents. Smoking: Cigarettes Alcohol Use: None Drug Use: Marijuana General Adult EDM: Chief Complaint: CHEST PAIN HPI: HPI: ".. I had sausage and biscuit for breakfast about 930 and been hurting since then.. reflux .. chest pain.. up into my neck... " Patient is a 50 year old male who presents with above hx and complaints of chest epigastric pain. Pt. had his sternal drain removed two days ago. Site appears stable. Pt. 2 days ago for chest pain. Since that time he has had his sternal drain removed post reconstruction sternal infection. Patient denies any fever or chills but still complains of some pleuritic or mechanical chest wall tenderness. Patient states central chest pain at times radiates to left shou lder. Patient does have significant medical history of ID in January for follow-up stent and bypass surgery at [facility]. Post surgery had problems with sternal incision that became infected and required repeat surgery and drain placement. Patient denies any recent changes in meds. Not on any antibiotics. Patient normally follows Dr. Dodd. Patient follows with cardiovascular surgeons. Patient does have a past medical history of vascular insufficiency particularly in left femoral artery, diabetes type 2, obesity, hypercholesterol, tobacco use, coronary artery disease, hypertension, osteomyelitis, cellulitis, sepsis, peripheral vascular disease and right leg, noncompliant with diabetic care history. Review of Systems: Review of Systems: Constitutional: Denies fever or chills Eyes: Denies change in visual acuity HENT: Denies nasal congestion or sore throat Respiratory: Denies cough or shortness of breath Cardiovascular: Complains of mechanical chest wall pain GI: Denies abdominal pain, nausea, vomiting, bloody stools or diarrhea : Denies dysuria Musculoskeletal: Denies back pain or joint pain Integument: Denies rash Neurologic: Denies headache, focal weakness or sensory changes Endocrine: Denies polyuria or polydipsia Lymphatic: Denies swollen glands Psychiatric: Denies depression or anxiety Family History: Family History: Noncontributory to presentation Current Medications: Current Meds: See nursing for home meds Allergies: Allergies: Allergies Coded Allergies Type Severity Reaction Last Updated Verified amoxicillin Allergy Intermediate 08/24/17 Yes clavulanic acid Allergy Intermediate 08/24/17 Yes Physical Exam: PE: Constitutional: Mild distress, non-toxic appearance. [] HENT: Normocephalic, atraumatic, bilateral external ears normal, oropharynx moist, no oral exudates, nose normal. [] Eyes: PERRLA, EOMI, conjunctiva normal, no discharge. [] Neck: Normal range of motion, no tenderness, supple, no stridor. [] Cardiovascular:TachycardiaHeart rate regular rhythm, no murmur [] PMI to the left. Lungs & Thorax: Bilateral breath sounds equal apex with scattered wheezes on auscultation [] sternal line does not appear to be particularly inflamed and healing well. Drain site has minimal drainage. Abdomen: Bowel sounds normal, soft, no tenderness, no masses, no pulsatile masses. [] Skin: Warm, dry, no erythema, no rash. Poor turgor Back: No tenderness, no CVA tenderness. [] Extremities: No tenderness, no cyanosis, no clubbing, ROM intact, no edema. Cording appreciated. Old surgery scars. Neurologic: Alert and oriented X 3, normal motor function, normal sensory function, no focal deficits noted. [] Psychologic: Affect anxious, judgement normal, mood normal. [] EKG: EKG: My interpretation EKG shows a sinus rhythm 89 bpm. Leftward axis. Right bundle branch block. No findings of acute STEMI or contralateral changes. Similar to prior EKG on file. Time of this EKG is 2223 hrs. [] Radiology/Procedures: Radiology/Procedures: [][address] [address] IMAGING REPORT Signed PATIENT: JAE DRAKE ACCOUNT: [id number] : 1970 LOCATION: ER AGE: 50 SEX: M EXAM STATUS: PRE ER ORD. PHYSICIAN: JIMMIE HEAD MD REASON: cp PROCEDURE: PORTABLE CHEST 1V EXAM: AP View of the chest DATE: 03/09/2021 10:56 PM INDICATION: Reason: cp / Spl. Instructions: / History: COMPARISON: 03/06/2021 06/13/2020 FINDINGS: The heart is not enlarged. Bilateral perihilar and right greater than left lung base airspace opacities likely consolidative process such as pneumonia. No pleural effusion or pneumothorax. IMPRESSION: Bilateral perihilar and right greater than left lung base airspace opacities likely consolidative process such as pneumonia. Electronically signed by: Arjun Cabrera MD (03/09/2021 11:46 PM) [facility] DICTATED AND SIGNED BY: ARJUN CABRERA MD DATE: 03/09/21 [id number] CC: JIMMIE HEAD MD; KRYSTLE SHARIF ~MTH0 0 Heart Score: C/O Chest Pain: Yes HEART Score for Chest Pain: HEART Score for Chest Pain Response (Comments) Value History Moderately Suspicious 1 ECG Nonspecific Repolarizatio 1 Age >45 - < 65 1 Risk Factors 1 or 2 Risk Factors 1 Troponin < Normal Limit 0 Total 4 Risk Factors: Risk Factors: DM, Current or recent (<one month) smoker, HTN, HLP, family history of CAD, obesity. Risk Scores: Score 0 - 3: 2.5% MACE over next 6 weeks - Discharge Home Score 4 - 6: 20.3% MACE over next 6 weeks - Admit for Clinical Observation Score 7 - 10: 72.7% MACE over next 6 weeks - Early Invasive Strategies Course & Med Decision Making: Course & Med Decision Making Pertinent Labs and Imaging studies reviewed. (See chart for details) Continue cardiac meds as previously directed. Call his surgeon for follow-up. Because of patient's elevated white count I am inclined to start patient on antibiotics. Patient received 1 g of Vanco here and started on clindamycin 300x3 times a day. Patient follow-up culture results. Patient return if any concerns. Call his surgeon in the morning. Return if any concerns. Follow up with Ayanna and his presentation team member. Impression: 1. Chest wall pain 2. History of coronary artery disease status post ID/stents and bypass surgery 3. Revision Hx. of Sternal wound 4. Elevated Leukocytosis 20.8 5 DM= 157 6. Elevated Alk. Phos 120 7. Hx GERD 8. Tobacco Use 9. Perihilar infiltrate/consolidation-bilateral more prominence on right side( Pneumonia vs Reactive) [] Dragon Disclaimer: Dragon Disclaimer: This electronic medical record was generated, in whole or in part, using a voice recognition dictation system. Departure Departure: Referrals: KRYSTLE SHARIF (PCP) Scripts Metronidazole (FLAGYL) 375 Mg Capsule 500 MG PO TID for infection for 10 Days, #40 CAP Prov: JIMMIE HEAD MD 03/10/21 Clindamycin Hcl (CLINDAMYCIN HCL) 300 Mg Capsule 300 MG PO TID for infection for 10 Days, #30 CAP Prov: JIMMIE HEAD MD 03/10/21 Dragon Disclaimer This chart was dictated in whole or in part using Voice Recognition software in a busy, high-work load, and often noisy Emergency Department environment. It may contain unintended and wholly unrecognized errors or omissions. Dragon Disclaimer This chart was dictated in whole or in part using Voice Recognition software in a busy, high-work load, and often noisy Emergency Department environment. It may contain unintended and wholly unrecognized errors or omissions. Dragon Disclaimer This chart was dictated in whole or in part using Voice Recognition software in a busy, high-work load, and often noisy Emergency Department environment. It may contain unintended and wholly unrecognized errors or omissions. JIMMIE HEAD MD Mar 09, 2021 22:31
[2021-03-09] MEDS ORDERED: MAGNESIUM HYDROXIDE 2,400 MG/30 ML ORAL.SUSP. ONE (22:38)
[2021-03-09] MEDS ORDERED: FAMOTIDINE 20 MG/2 ML VIAL ONE (22:39)
[2021-03-09] MEDS ORDERED: SUCRALFATE 1 GM TABLET. PO ONE ×2 (22:39→23:00)
[2021-03-09] MEDS ORDERED: MAGNESIUM HYDROXIDE 2,400 MG/30 ML ORAL.SUSP. PO ONE (23:00)
[2021-03-09] MEDS ORDERED: FAMOTIDINE 20 MG/2 ML VIAL IVP ONE (23:00)
[2021-03-09] MEDS ORDERED: MORPHINE SULFATE 10 MG/ML SYRINGE. SQ ONE (23:00)
[2021-03-09] MEDS ORDERED: IV RINGERS SOLUTION,LACTATED 1,000 ML IV SCH (23:00)
[2021-03-09 23:20] LABS: BASO # 0.1 x10^3/uL (0.0-0.2); BASO % 1 % (0-3); EOS # 0.4 x10^3/uL (0.0-0.7); EOS % 2 % (0-3); HEMATOCRIT 42.3 % (39.0-53.0); HEMOGLOBIN 14.1 g/dL (13.0-17.5); LYMPH # 1.7 x10^3/uL (1.0-4.8); LYMPH % 8 % (24-48); MEAN CORPUSCULAR HEMOGLOBIN 31 pg (25-35); MEAN CORPUSCULAR HGB CONC 33 g/dL (31-37); MEAN CORPUSCULAR VOLUME 94 fL (79-100); MONO # 1.3 x10^3/uL (0.0-1.1); MONO % 6 % (0-9); NEUT # 17.3 x10^3uL (1.8-7.7); NEUT % 83 % (31-73); PLATELET COUNT 343 x10^3/uL (140-400); RED BLOOD COUNT 4.51 x10^6/uL (4.30-5.70); RED CELL DISTRIBUTION WIDTH 15.6 % (11.5-14.5); WHITE BLOOD COUNT 20.8 x10^3/uL (4.0-11.0)
[2021-03-09 23:29] LABS: CALCIUM 9.1 mg/dL (8.5-10.1); CREATININE 1.2 mg/dL (0.7-1.3); GFR 63.6; POTASSIUM 4.9 mmol/L (3.5-5.1)
[2021-03-09 23:35] LABS: ALBUMIN 3.7 g/dL (3.4-5.0); DIRECT BILIRUBIN 0.1 mg/dL (0.0-0.2); MAGNESIUM 2.3 mg/dL (1.8-2.4); TOTAL BILIRUBIN 0.3 mg/dL (0.2-1.0); TOTAL PROTEIN 7.5 g/dL (6.4-8.2)
[2021-03-09 23:44] LABS: % EOS 3 % (0-5); % LYMPHS 7 % (24-48); % MONOS 5 % (0-10); % SEGS 85 % (35-66)
[2021-03-09 23:45] LABS: ANISOCYTOSIS SLIGHT; PLT ESTIMATE INCREASED (ADEQUATE)
[2021-03-09 23:48] LABS: BACTERIA,URINE FEW /HPF (0-FEW); BILIRUBIN,URINE NEG (NEG); CLARITY,URINE CLEAR; COLOR,URINE YELLOW; GLUCOSE,URINE NEG (NEG); NITRITE,URINE NEG (NEG); RBC,URINE 0 /HPF (0-2); UROBILINOGEN,URINE 0.2 mg/dL (0.2 mg/dL); WBC,URINE 0 /HPF (0-4)
--- NOTE | 2021-03-09 23:48 | RAD ---
EXAM: AP View of the chest DATE: 03/09/2021 10:56 PM INDICATION: Reason: cp / Spl. Instructions: / History: COMPARISON: 03/06/2021 06/13/2020 FINDINGS: The heart is not enlarged. Bilateral perihilar and right greater than left lung base airspace opacities likely consolidative pro cess such as pneumonia. No pleural effusion or pneumothorax. IMPRESSION: Bilateral perihilar and right greater than left lung base airspace opacities likely consolidative pro cess such as pneumonia. Electronically signed by: Arjun Park MD (03/09/2021 11:46 PM) SWETHA
[2021-03-09 23:49] LABS: SQUAMOUS EPITHELIAL CELL,UR FEW /LPF
--- NOTE | 2021-03-09 23:58 | EKG ---
[address] [address] Test Date: 2021-03-09 Test Time: 22:23:24 Pat Name: JAE DRAKE Department: Room: Gender: M [employer] Helper: : 1970 Requested By: JIMMIE HEAD Order Number: [id number] Reading MD: Measurements Intervals [place] Rate: 89 P: 36 [place]: 164 QRS: 0 QRSD: 130 T: 21 QT: 370 QTc: 457 Interpretive Statements SINUS RHYTHM LEFTWARD AXIS RIGHT BUNDLE BRANCH BLOCK ABNORMAL ECG RI6.02 No previous ECG available for comparison
[2021-03-10 00:25] VITALS: BP 138/82
[2021-03-10] MEDS ORDERED: VANCOMYCIN 1 GM in IV NORMAL SALINE 250ML 250 ML IV ONE (00:45)
[2021-03-10] MEDS ORDERED: VANCOMYCIN 1 GM VIAL. ONE (00:55)
[2021-03-10] MEDS ORDERED: IV NORMAL SALINE 500ML 500 ML ONE (00:55)
[2021-03-10] MEDS ORDERED: CLINDAMYCIN HCL 150 MG CAPSULE PO ONE (01:00)
[2021-03-10] MEDS ORDERED: VANCOMYCIN 2 GM in IV NORMAL SALINE 500ML 500 ML IV ONE (01:00)
[2021-03-10] MEDS ORDERED: METR375C PO (02:21)
[2021-03-10] MEDS ORDERED: CLIN-95 PO (02:21)
[2021-03-10] MEDS ORDERED: metroNIDAZOLE 500 MG TABLET PO ONE (03:00)
== END 2021-03-10 03:35 | disposition home or self-care (01) ==
LOC: ER 22:17
DX: R07.89 Other chest pain (principal); R10.13 Epigastric pain; D72.829 Elevated white blood cell count, unspecified; E11.9 Type 2 diabetes mellitus without complications; R79.89 Other specified abnormal findings of blood chemistry; K21.9 Gastro-esophageal reflux disease without esophagitis; E78.00 Pure hypercholesterolemia, unspecified; I10 Essential (primary) hypertension; I25.2 Old myocardial infarction; I25.810 Atherosclerosis of coronary artery bypass graft(s) without angina pectoris; F17.210 Nicotine dependence, cigarettes, uncomplicated; Z88.1 Allergy status to other antibiotic agents
CPT/HCPCS: 36415; 71045; 80048; 80076; 81001; 82550; 83690; 83735; 84484; 85007; 85025; 85610; 85730; 87040; 93005; 96361; 96365; 96366; 96372; 96375; 99285; J2270; J3370; J3490; J7040; J7120

== ENCOUNTER 2021-03-30 09:33 | Emergency (ER) | payer MEDICARE, OTHER ==
[~2021-03-30 09:33] MED LIST changes: +CLIN-95 PO; +METR375C PO
--- NOTE | 2021-03-30 09:57 | PHYS DOC ---
Past History Past Medical History: Diabetes, High Cholesterol, Hypertension, IA, Other Past Surgical History: Gastric Bypass Additional Past Surgical Histo: Cardica and leg stents. Smoking: Cigarettes Alcohol Use: None Drug Use: Marijuana Adult General Chief Complaint Chief Complaint: SHORTNESS OF BREATH HPI HPI Patient is a 50-year-old male presenting via EMS for chest pain. Patient has extensive comorbid history significant for CABG ~09/2020 performed at [facility] that subsequently got infected with current drain placement and daily doxycycline and cefpoxedine antibiotics. Nonetheless, states he has been at baseline health but 5 days ago started developing upper respiratory symptoms and a day afterwards, he tested positive for COVID-19 infection. States he has been taking all medications at home without issue but today, ongoing shortness of breath prompted him to call EMS. Patient was initially trying to go to [facility] but due to current COVID-19 pandemic and the fact that [facility] [place] was on high-volume, patient was diverted to our facility. On arrival, patient complains of ongoing chest pain and shortness of breath. No recent fever, chills, sweats, ripping or tearing sensation in torso, abdominal pain, nausea vomit diarrhea, dysuria or changes in motor or sensory urinary function. She takes 81 mg aspirin daily without any other anticoagulant use. Has history of smoking otherwise denies alcohol and illicit drug use Review of Systems Review of Systems Fourteen body systems of review of systems have been reviewed. See HPI for pertinent positives and negative responses, other carrasco all other systems are negative, non-pertinent or non-contributory Allergies Allergies Allergies Coded Allergies Type Severity Reaction Last Updated Verified amoxicillin Allergy Intermediate 08/24/17 Yes clavulanic acid Allergy Intermediate 08/24/17 Yes Physical Exam Physical Exam Constitutional: Well developed, well nourished, no acute distress, non-toxic appearance. Appears anxious HENT: Normocephalic, atraumatic, bilateral external ears normal, oropharynx moist, postnasal drip present no oral exudates, external nose unremarkable with rhinorrhea present Eyes: PERRLA, EOMI, conjunctiva normal, no discharge. Neck: Normal range of motion, no tenderness, supple, no stridor. Cardiovascular: Heart rate regular, sinus rhythm, no murmurs rubs or gallops. Well-appearing anterior Cook/ drain with serosanguineous fluid in bulb Lungs & Thorax: Anxious with no obvious sign of increased work of breathing or respiratory distress/failure, crackles present diffusely with wheezes present during end expiratory phase of respiration Abdomen: Bowel sounds normal, soft, no tenderness, no masses, no pulsatile masses. Nonsurgical abdomen, no peritoneal signs Skin: Warm, dry, no erythema, no rash. Back: No tenderness, no CVA tenderness. Extremities: No tenderness, no cyanosis, no clubbing, ROM intact, no edema. Neurologic: Alert and oriented X 3, normal motor & sensory function, no focal deficits noted. Psychologic: Anxious affect and mood Current Patient Data Vital Signs Vital Signs Date Time Temp Pulse Resp B/P (MAP) Pulse Ox O2 Delivery O2 Flow Rate FiO2 03/30/21 10:45 16 92 Vital Signs Date Time Temp Pulse Resp B/P (MAP) Pulse Ox O2 Delivery O2 Flow Rate FiO2 03/30/21 10:45 16 92 Lab Results Laboratory Tests Test 03/30/21 10:40 White Blood Count 18.1 x10^3/uL Red Blood Count 4.38 x10^6/uL Hemoglobin 13.2 g/dL Hematocrit 40.3 % Mean Corpuscular Volume 92 fL Mean Corpuscular Hemoglobin 30 pg Mean Corpuscular Hemoglobin Concent 33 g/dL Red Cell Distribution Width 14.5 % Platelet Count 487 x10^3/uL Neutrophils (%) (Auto) 79 % Lymphocytes (%) (Auto) 8 % Monocytes (%) (Auto) 11 % Eosinophils (%) (Auto) 1 % Basophils (%) (Auto) 1 % Neutrophils # (Auto) 14.4 x10^3uL Lymphocytes # (Auto) 1.5 x10^3/uL Monocytes # (Auto) 2.0 x10^3/uL Eosinophils # (Auto) 0.1 x10^3/uL Basophils # (Auto) 0.1 x10^3/uL Segmented Neutrophils % 81 % Lymphocytes % 9 % Monocytes % 10 % Platelet Estimate Increased Large Platelets Occ Giant Platelets Occ Prothrombin Time 10.9 SEC Prothromb Time International Ratio 1.1 Activated Partial Thromboplast Time 32 SEC Bedside Venous pH 7.43 Bedside Venous pCO2 37 mmHg Bedside Venous pO2 27 mmHg Venous Blood HCO3 24 mmol/L POC Venous O2 Saturation (Beatriz) 53 % Bedside FiO2 21 Sodium Level 133 mmol/L Potassium Level 4.4 mmol/L Chloride Level 95 mmol/L Carbon Dioxide Level 26 mmol/L Anion Gap 12 Blood Urea Nitrogen 12 mg/dL Creatinine 1.2 mg/dL Estimated GFR (Cockcroft-Gault) 63.6 BUN/Creatinine Ratio 10 Glucose Level 113 mg/dL Lactic Acid Level 2.4 mmol/L Calcium Level 8.8 mg/dL Magnesium Level 2.2 mg/dL Total Bilirubin 0.8 mg/dL Aspartate Amino Transf (AST/SGOT) 14 U/L Alanine Aminotransferase (ALT/SGPT) 14 U/L Alkaline Phosphatase 101 U/L Troponin I High Sensitivity 7 ng/L ZL-Mci-I-Type Natriuretic Peptide 2263 pg/mL Total Protein 7.5 g/dL Albumin 3.3 g/dL Albumin/Globulin Ratio 0.8 Current Medications Medications (Trade) Dose Ordered Sig/Preet Route PRN Reason Start Time Stop Time Status Last Admin Dose Admin Nitroglycerin (Nitrostat) 0.4 mg PRN Q5MIN PRN SL CP RATING > 04/0203/30/21 10:00 03/31/21 09:59 Sodium Chloride 1,000 ml @ 1,000 mls/hr Q1H IV 03/30/21 10:00 03/30/21 10:59 DC 03/30/21 10:45 Fentanyl Citrate (Fentanyl 2ml Vial) 50 mcg 1X ONCE IVP 03/30/21 10:00 03/30/21 10:01 DC 03/30/21 10:45 Iohexol (Omnipaque 350 Mg/ml) 100 ml 1X ONCE IV 03/30/21 10:00 03/30/21 10:01 DC 03/30/21 10:08 EKG EKG EKG ordered and interpreted by myself at 0943 hrs. as sinus tachycardia at 106 bpm, prolonged QTC at 132 otherwise unremarkable intervals, left axis deviation, right bundle branch block, no STEMI Repeat EKG ordered and interpreted by myself 1104 hrs. as sinus rhythm at 95 bpm, prolonged QRS at 136 and prolonged QTC at 473 otherwise unremarkable intervals, left axis deviation, right bundle branch block, no STEMI Radiology/Procedures Radiology/Procedures EXAMINATION: XR CHEST 1V CLINICAL HISTORY: Chest pain, short of air, covid EXAM DATE/TIME: 03/30/2021 9:56 AM COMPARISON: CTA chest same day, chest radiograph 03/09/2021 FINDINGS: Lines, Tubes, and Devices: Interval placement of pigtail drainage catheter over lying the sternum, better appreciated on comparison CTA. Cardiomediastinal Silhouette: Normal heart size. Lungs and Pleura: Improved aeration of bilateral lungs with mild residual bibasilar subsegmental atelectasis. No pleural effusion or pneumothorax. Bones and Soft Tissues: Degenerative changes in the thoracic spine. Median sternotomy wires and paramediastinal surgical clips. IMPRESSION: Improved aeration of bilateral lungs with mild residual bibasilar subsegmental atelectasis. Interval placement of pigtail drainage catheter overlying the sternum, better appreciated on comparison CTA. Electronically signed by: Cosmo Cox DO (03/30/2021 10:36 AM) [id number] //////////////// CTA CHEST 03/30/2021 9:56 AM Indication: Chest pain, Covid positive COMPARISON: None available TECHNIQUE: Axial CT images of the chest were obtained after the intravenous administration of nonionic contrast. Coronal and sagittal reformats are provided. Maximum intensity projection images of the thoracic vasculature are provided. FINDINGS: Median sternotomy changes are identified. Retrosternal and presternal inflammatory changes likely reflect recent postoperative status. The thyroid gland is normal in appearance. Precarinal lymph node measures 1.3 cm, likely reactive.. The heart size is within normal limits. No significant pericardial effusion. Thoracic aorta is normal in course and caliber. Three-ves tiffanie coronary artery vascular calculations are present. There is adequate opacification of the pulmonary arterial system. There is a filling defect within the right posterior basal segment right lower lobe pulmonary artery compatible with pulmonary embolism. No right heart strain. There are no suspicious solid noncalcified pulmonary nodules. There are no pulmonary infiltrates. There trace right pleural effusion. No pulmonary vascular congestion or pneumothorax. Visualized portions of the upper abdomen are within normal limits. Inferior pole left renal cyst measures 1.9 cm. No suspicious osseous lesions are visualized. IMPRESSION: 1. There is a subsegmental filling defect within the right lower lobe posterior basal segment pulmonary artery compatible with acute pulmonary embolism. No CT findings of right heart strain. 2. Trace right pleural effusion. 3. Post surgical changes are identified from CABG. No abscess visualized. Electronically signed by: Amy Sam MD (03/30/2021 11:22 AM) [id number] Heart Score C/O Chest Pain: Yes HEART Score for Chest Pain: HEART Score for Chest Pain Response (Comments) Value History Highly Suspicious 2 ECG Nonspecific Repolarizatio 1 Age >45 - < 65 1 Risk Factors 1 or 2 Risk Factors 1 Total 5 Risk Factors: Risk Factors: DM, Current or recent (<one month) smoker, HTN, HLP, family history of CAD, obesity. Risk Scores: Risk Factors: DM, Current or recent (<one month) smoker, HTN, HLP, family history of CAD, obesity. Course & Med Decision Making Course & Med Decision Making ABCs unremarkable HPI physical exam and comprehensive ER work-up concerning for nonmassive right lower lobe pulmonary embolism in setting of known COVID-19 infected patient with prior COVID vaccinations and actively infected sternal wound I disclosed entirety of ER findings and complexity of case with patient. I reviewed this with the patient's health system of origin, [facility] and joint decision made between myself patient and hospitalist there to defer further work-up and hospital transfer for Eliquis use and close PCP follow-up Patient subsequently given 10 mg Eliquis with explicit instructions given, strict return precautions discussed with understanding verbalized by patient prior to ER departure with continued supportive care and self quarantine precautions given COVID-19 status with PCP follow-up when safe to do so Advised patient to continue doxycycline and cefpoxitin antibiotics for sternal wound with close outpatient follow-up previously scheduled next week pending he is clear and asymptomatic from active COVID-19 infection Dragon Disclaimer Dragon Disclaimer This electronic medical record was generated, in whole or in part, using a voice recognition dictation system. Departure Departure: Impression: Primary Impression: COVID-19 Additional Impressions: Pulmonary embolism Postoperative infection of wound of sternum Disposition: HOME / SELF CARE / HOMELESS Condition: STABLE Referrals: KRYSTLE SHARIF (PCP) Patient Instructions: Pulmonary Embolus Additional Instructions: As discussed prior to ER departure, your vitals, physical exam and comprehensive ER work-up ordered concerning for a pulmonary embolism that did not have any obvious right heart strain in the setting of sternal infection and known COVID- 19 infection. I disclosed entirety of results with you and even called your physicians at [facility] to review ER visit today. As disclosed, there is no indication for further diagnostic work-up and/or need for hospital transfer at this time given your hemodynamically stable status. Joint decision was made among all to treat your pulmonary embolism with Eliquis, a blood thinner that should be used as stated with the utmost importance of close outpatient follow-up to review ER visit today when safe to do so. You need to take this to your newly prescribed Eliquis 10 mg twice daily for 7 days followed by 5 mg twice daily. If any concerning signs or symptoms present prior to outpatient follow-up please do not hesitate to come back for repeat evaluation. It was pleasure to take care of you and I wish you the best going forward Scripts Apixaban (ELIQUIS) 5 Mg Tablet 10 MG PO BID for pulmonary embolism, #60 TAB Prov: NATHANAEL PANTOJA DO 03/30/21 Problem Qualifiers NATHANAEL PANTOJA DO Mar 30, 2021 09:56
[2021-03-30] MEDS ORDERED: IV NORMAL SALINE 1,000ML 1,000 ML IV SCH (10:00)
[2021-03-30] MEDS ORDERED: NITROGLYCERIN SUBLINGUAL 0.4 MG BOTTLE OF 25. SL PRN (10:00)
[2021-03-30] MEDS ORDERED: IOHEXOL 350 MG/ML 100 ML VIAL. IV ONE (10:00)
--- NOTE | 2021-03-30 10:39 | RAD ---
EXAMINATION: XR CHEST 1V CLINICAL HISTORY: Chest pain, short of air, covid EXAM DATE/TIME: 03/30/2021 9:56 AM COMPARISON: CTA chest same day, chest radiograph 03/09/2021 FINDINGS: Lines, Tubes, and Devices: Interval placement of pigtail drainage catheter overlying the sternum, bet ter appreciated on comparison CTA. Cardiomediastinal Silhouette: Normal heart size. Lungs and Pleura: Improved aeration of bilateral lungs with mild residual bibasilar subsegmental atel ectasis. No pleural effusion or pneumothorax. Bones and Soft Tissues: Degenerative changes in the thoracic spine. Median sternotomy wires and more ediastinal surgical clips. IMPRESSION: Improved aeration of bilateral lungs with mild residual bibasilar subsegmental atelectasis. Interval placement of pigtail drainage catheter overlying the sternum, better appreciated on comparis on CTA. Electronically signed by: Cosmo Cox DO (03/30/2021 10:36 AM) [id number]
--- NOTE | 2021-03-30 10:49 | EKG ---
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
[2021-03-30 10:58] LABS: BASO # 0.1 x10^3/uL (0.0-0.2); BASO % 1 % (0-3); EOS # 0.1 x10^3/uL (0.0-0.7); EOS % 1 % (0-3); HEMATOCRIT 40.3 % (39.0-53.0); HEMOGLOBIN 13.2 g/dL (13.0-17.5); LYMPH # 1.5 x10^3/uL (1.0-4.8); LYMPH % 8 % (24-48); MEAN CORPUSCULAR HEMOGLOBIN 30 pg (25-35); MEAN CORPUSCULAR HGB CONC 33 g/dL (31-37); MEAN CORPUSCULAR VOLUME 92 fL (79-100); MONO % 11 % (0-9); NEUT # 14.4 x10^3uL (1.8-7.7); NEUT % 79 % (31-73); PLATELET COUNT 487 x10^3/uL (140-400); RED BLOOD COUNT 4.38 x10^6/uL (4.30-5.70); RED CELL DISTRIBUTION WIDTH 14.5 % (11.5-14.5); WHITE BLOOD COUNT 18.1 x10^3/uL (4.0-11.0)
[2021-03-30 11:05] LABS: CALCIUM 8.8 mg/dL (8.5-10.1); CREATININE 1.2 mg/dL (0.7-1.3); GFR 63.6; POTASSIUM 4.4 mmol/L (3.5-5.1)
[2021-03-30 11:18] LABS: ALBUMIN 3.3 g/dL (3.4-5.0); ALBUMIN/GLOBULIN RATIO 0.8 (1.0-1.7); MAGNESIUM 2.2 mg/dL (1.8-2.4); TOTAL BILIRUBIN 0.8 mg/dL (0.2-1.0); TOTAL PROTEIN 7.5 g/dL (6.4-8.2)
--- NOTE | 2021-03-30 11:24 | RAD ---
PQRS Compliance Statement: One or more of the following individualized dose reduction techniques were utilized for this examinat ion: 1. Automated exposure control 2. Adjustment of the mA and/or kV according to patient size 3. Use of iterative reconstruction technique CTA CHEST 03/30/2021 9:56 AM Indication: Chest pain, Covid positive COMPARISON: None available TECHNIQUE: Axial CT images of the chest were obtained after the intravenous administration of nonioni c contrast. Coronal and sagittal reformats are provided. Maximum intensity projection images of the t horacic vasculature are provided. FINDINGS: Median sternotomy changes are identified. Retrosternal and presternal inflammatory changes likely ref lect recent postoperative status. The thyroid gland is normal in appearance. Precarinal lymph node measures 1.3 cm, likely reactive.. T he heart size is within normal limits. No significant pericardial effusion. Thoracic aorta is normal in course and caliber. Three-vessel coronary artery vascular calculations are present. There is adequate opacification of the pulmonary arterial system. There is a filling defect within th e right posterior basal segment right lower lobe pulmonary artery compatible with pulmonary embolism. No right heart strain. There are no suspicious solid noncalcified pulmonary nodules. There are no pulmonary infiltrates. The re trace right pleural effusion. No pulmonary vascular congestion or pneumothorax. Visualized portions of the upper abdomen are within normal limits. Inferior pole left renal cyst precious ures 1.9 cm. No suspicious osseous lesions are visualized. IMPRESSION: 1. There is a subsegmental filling defect within the right lower lobe posterior basal segment pulmona ry artery compatible with acute pulmonary embolism. No CT findings of right heart strain. 2. Trace right pleural effusion. 3. Post surgical changes are identified from CABG. No abscess visualized. Electronically signed by: Amy Sam MD (03/30/2021 11:22 AM) [id number]
[2021-03-30 11:36] LABS: % LYMPHS 9 % (24-48); % MONOS 10 % (0-10); % SEGS 81 % (35-66); PLT ESTIMATE INCREASED (ADEQUATE)
[2021-03-30] MEDS ORDERED: APIX5TAB3 PO (12:40)
[2021-03-30] MEDS ORDERED: APIXABAN 5 MG TABLET. PO SCH (13:00)
[2021-03-30] MEDS ORDERED: HYDROcodone/APAP 5/325MG 1 TAB TABLET PO ONE (13:00)
--- NOTE | 2021-03-30 13:12 | EKG ---
[address] [address] Test Date: 2021-03-30 Test Time: 10:56:30 Pat Name: JAE DRAKE Department: Room: Gender: M Tooth Clerk: : 1970 Requested By: NATHANAEL PANTOJA Order Number: [id number] Reading MD: Carlos Avendano Measurements Intervals [place] Rate: 95 P: 18 MS: 160 QRS: -56 QRSD: 136 T: 12 QT: 374 QTc: 473 Interpretive Statements SINUS RHYTHM ABNORMAL LEFT AXIS DEVIATION LEFT ANTERIOR FASCICULAR BLOCK RIGHT BUNDLE BRANCH BLOCK BIFASCICULAR BLOCK Electronically Signed On 03-30-2021 14:23:59 POOLING OPERATOR by Carlos Avendano
== END 2021-03-30 13:02 | disposition home or self-care (01) ==
LOC: ER 09:33
DX: U07.1 COVID-19 (principal); T81.49XA Infection following a procedure, other surgical site, initial encounter; I26.99 Other pulmonary embolism without acute cor pulmonale; E11.9 Type 2 diabetes mellitus without complications; E78.00 Pure hypercholesterolemia, unspecified; I10 Essential (primary) hypertension; I25.2 Old myocardial infarction; F17.210 Nicotine dependence, cigarettes, uncomplicated; Z98.84 Bariatric surgery status; Z88.1 Allergy status to other antibiotic agents
CPT/HCPCS: 36415; 71045; 71275; 80053; 82803; 83605; 83735; 83880; 84484; 85007; 85025; 85610; 85730; 87040; 93005; 96361; 96374; 99285; J3010; J7030; Q9967

== ENCOUNTER 2021-05-21 17:18 | Emergency (ER) | payer MEDICARE, OTHER ==
[~2021-05-21] VITALS: Ht 177.8 cm; Wt 104.0 kg
[~2021-05-21 17:18] MED LIST changes: +APIX5TAB3 PO
[2021-05-21] MEDS ORDERED: IOHEXOL 300 MG/ML 75 ML VIAL. IV ONE (17:45)
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
[2021-05-21] MEDS ORDERED: oxyCODONE IR 5 MG TABLET PO PRN (18:00)
[2021-05-21 18:24] LABS: BASO # 0.1 x10^3/uL (0.0-0.2); BASO % 1 % (0-3); EOS # 0.4 x10^3/uL (0.0-0.7); EOS % 4 % (0-3); HEMATOCRIT 39.7 % (39.0-53.0); HEMOGLOBIN 12.8 g/dL (13.0-17.5); LYMPH # 1.9 x10^3/uL (1.0-4.8); LYMPH % 17 % (24-48); MEAN CORPUSCULAR HEMOGLOBIN 29 pg (25-35); MEAN CORPUSCULAR HGB CONC 32 g/dL (31-37); MEAN CORPUSCULAR VOLUME 89 fL (79-100); MONO # 0.9 x10^3/uL (0.0-1.1); MONO % 8 % (0-9); NEUT % 71 % (31-73); PLATELET COUNT 329 x10^3/uL (140-400); RED BLOOD COUNT 4.44 x10^6/uL (4.30-5.70); RED CELL DISTRIBUTION WIDTH 16.5 % (11.5-14.5); WHITE BLOOD COUNT 11.3 x10^3/uL (4.0-11.0)
[2021-05-21 18:41] LABS: CALCIUM 8.9 mg/dL (8.5-10.1); GFR 78.5; POTASSIUM 4.6 mmol/L (3.5-5.1)
[2021-05-21 18:43] LABS: ALBUMIN 3.1 g/dL (3.4-5.0); ALBUMIN/GLOBULIN RATIO 0.8 (1.0-1.7); TOTAL BILIRUBIN 0.2 mg/dL (0.2-1.0); TOTAL PROTEIN 6.8 g/dL (6.4-8.2)
--- NOTE | 2021-05-21 18:43 | EKG ---
[facility] [address] [place] [address] Test Date: 2021-05-21 Test Time: 17:45:01 Pat Name: JAE DRAKE Department: Room: Gender: M Environmental Studies Professor: SBJose Francisco : 1970 Requested By: MARILU VIDAL Order Number: [id number] Reading MD: Pedro Graham MD Measurements Intervals [place] Rate: 83 P: 18 NC: 170 QRS: -2 QRSD: 130 T: 16 QT: 394 QTc: 469 Interpretive Statements SINUS RHYTHM RBBB Electronically Signed On 05-22-2021 10:58:53 HIDE SPLITTER by Pedro Graham MD
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
[2021-05-21 19:58] LABS: CLARITY,URINE CLOUDY; COLOR,URINE YELLOW; GLUCOSE,URINE NEG (NEG); NITRITE,URINE POS (NEG); UROBILINOGEN,URINE 0.2 mg/dL (0.2 mg/dL)
[2021-05-21 19:59] LABS: BACTERIA,URINE MANY /HPF (0-FEW); SQUAMOUS EPITHELIAL CELL,UR FEW /LPF
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
[2021-05-21 20:07] VITALS: BP 177/90
== END 2021-05-21 20:07 | disposition home or self-care (01) ==
LOC: ER 17:18
DX: S09.90XA Unspecified injury of head, initial encounter (principal); R07.89 Other chest pain; M54.2 Cervicalgia; I25.10 Atherosclerotic heart disease of native coronary artery without angina pectoris; E11.9 Type 2 diabetes mellitus without complications; E78.00 Pure hypercholesterolemia, unspecified; I10 Essential (primary) hypertension; I25.2 Old myocardial infarction; F17.210 Nicotine dependence, cigarettes, uncomplicated; Z98.84 Bariatric surgery status; Z88.1 Allergy status to other antibiotic agents; V43.52XA Car driver injured in collision with other type car in traffic accident, initial encounter; Y93.I9 Activity, other involving external motion; Y92.89 Other specified places as the place of occurrence of the external cause; Y99.8 Other external cause status
CPT/HCPCS: 36415; 70450; 71260; 72125; 74177; 80053; 81001; 84484; 85025; 87077; 87086; 87186; 93005; 99285; Q9967